=== PATIENT | female | born 1955 | race Hispanic/Latino ===

== ENCOUNTER → 2018-03-31 | Day surgery (SDC) | payer OTHER ==
--- NOTE | 2018-03-28 10:15 | Diagnostic Imaging Report ---
PROCEDURE: X-RAY CHEST, TWO VIEWS COMPARISON: 03/19/2013. INDICATIONS: PREOPERATIVE CHEST XRAY FOR LEFT FOOT SURGERY FINDINGS: Lungs are well-inflated. No focal airspace consolidation, pleural effusion, or pneumothorax. Stable cardiomediastinal contour with mild tortuosity of the thoracic aorta. Normal heart size and pulmonary vasculature. No acute osseous abnormality. Mild multilevel degenerative disc changes of the thoracic spine. CONCLUSION: No acute cardiopulmonary abnormality. Dictated by: Curt Street M.D. on 03/28/2018 at 10:20 Electronically approved by: Curt Street M.D. on 03/28/2018 at 10:20
[2018-03-28 10:20] LABS: BASOPHILS % 0.3 % (0.0-1.0); EOSINOPHILS # (AUTO) 0.1 (0.0-0.4); EOSINOPHILS % 1.6 % (0.0-6.0); HEMATOCRIT 40.3 % (34.2-44.1); HEMOGLOBIN 13.5 g/dL (12.0-16.0); LYMPHOCYTES # (AUTO) 2.1 (1.0-3.2); LYMPHOCYTES % 27.9 % (18.0-39.1); MEAN CORPUSCULAR HEMOGLOBIN 31.1 pg (28-32); MEAN CORPUSCULAR HGB CONC 33.5 g/dL (31-35); MEAN CORPUSCULAR VOLUME 92.9 fL (81-99); MONOCYTES # (AUTO) 0.7 (0.2-0.8); MONOCYTES % 9.7 % (4.4-11.3); NEUTROPHILS # (AUTO) 4.5 (2.1-6.9); PLATELET COUNT 292 x10e3/uL (140-360); RED BLOOD COUNT 4.34 x10e6/uL (3.6-5.1); RED CELL DISTRIBUTION WIDTH 13.1 % (11.7-14.4)
[2018-03-28 10:35] LABS: ANION GAP 14.6 mmol/L (8-16); BLOOD UREA NITROGEN 23 mg/dL (7-26); BUN/CREATININE RATIO 29 (6-25); CALCIUM 9.8 mg/dL (8.4-10.2); CARBON DIOXIDE 28 mmol/L (22-29); CHLORIDE 106 mmol/L (98-107); CREATININE, SERUM 0.79 mg/dL (0.57-1.11); EST GLOMERULAR FILTRATION RATE > 60 ML/MIN (60-); GLUCOSE 100 mg/dL (74-118); POTASSIUM 4.6 mmol/L (3.5-5.1); SODIUM 144 mmol/L (136-145)
[~2018-03-31] MED LIST: ALENDRONATE SOD70 MG PO; ATORVASTATIN CA40 MG PO; ATORVASTATIN PO; BISOPROLOL-HCT1 EAC1 PO; BUPIVACAINE HCL 0.5% INJ 30 ML VIAL INJ ONE; CALCIUM 600 +1 EAC2 PO; CEFAZOLIN SOD 2 GM/D5W 50ML 50 ML IV ONE; DEXAMETHASONE SOD PHOS INJ 4 MG/ML VIAL ONE; EPHEDRINE SULFATE INJ 50 MG/10 ML SYR ONE; FENTANYL CITRATE/PF 100MCG/2 ML INJ ONE; GLYCOPYRROLATE INJ 1MG/ 5 ML SYR ONE; HYDROCODONE/APAP 7.5MG-325MG 1 EA TAB ONE; KETOROLAC TROMETHAMINE 30 MG/ML VIAL ONE; LIDOCAINE HCL 2% LOCAL INJ 5 ML SDV VIAL INJ ONE; MIDAZOLAM HCL 2 MG/2 ML VIAL ONE; NAPROXEN500 MG PO; NEOSTIGMINE 5 MG/5ML SYR ONE; ONDANSETRON HCL INJ 2 MG/ML VIAL ONE; PROPOFOL IV EMULSION 10 MG/ML 20 ML VIAL ONE; ROCURONIUM BROMIDE 10 MG/ML 5ML VIAL ONE; SEVOFLURANE INHAL SOLN 250 ML PEN BTL ONE; VITAMIN B-121000 MCG PO; Z BISOPROLOL HCT PO; Z.0.PRAVASTATIN SOD4 PO; [UNRECOGNIZED DRUG - OTHER] PO
--- NOTE | 2018-04-02 21:56 | Operative Report ---
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 TITLE OF THE OPERATIONS 1. Removal of hardware from the left foot. 2. Triple arthrodesis, left foot including calcaneocuboid fusion, talonavicular fusion, and subtalar joint fusion on the left foot. PROCEDURE IN DETAIL: The patient was taken to the operating room in a mildly sedated state and placed upon the operating room table in supine position. Following induction of general anesthetic, the left lower extremity was elevated to 60 degrees to exsanguinate before inflating the pneumatic thigh tourniquet to 350 mmHg to good hemostasis. Left lower extremity was placed on the operating room table prior to performing the following procedure: Procedure #1. Subtalar joint fusion of the left foot. An Ollier-type incision was made overlying the sinus tarsi and subtalar joints. Incision was deepened via sharp and blunt dissection down to the level of the dorsal capsular structure. Care was taken to identify and retract all vital structures encountered. A hardware previously inserted into the sinus tarsi was removed, this being a sinus tarsi stent or an CHRISTNE implant. The stent was removed fairly easily and this was done under fluoroscopy and then the subtalar joints were debrided, removed of all constricting and surrounding bone in situ. The subtalar joint was then fused with a 7.5 screw. The calcaneocuboid joint was also dissected free as was the talonavicular joint. The calcaneocuboid joint after full debridement and insertion of bone grafting was covered with a claw plate and then attention was directed to the dorsal aspect of the talonavicular joint which after debridement was repositioned and pinned with 2 cortical bone screws 4.0 in diameter. Release of the pneumatic thigh tourniquet showed a normal hyperemic flush to all digits of the left foot. Deep closure was 3-0 Vicryl, subcutaneous closure 4-0 Vicryl, and skin closure 4-0 nylon. All was closed over a TLS drain and the patient was placed in a posterior splint, appropriate mildly compressive dressings were applied. Patient left the operating room with vital signs stable and in apparent satisfactory condition, having tolerated both anesthetic and procedure very well. She will be following up in my office within 1 week postoperatively and understands that she needs to remain completely nonweightbearing in the interim. Job#: [id number]
== END | disposition home or self-care (01) ==
LOC: OR 08:08
PROVIDERS: ATTEND Podiatrist Foot Surgery
DX: M19.072 Primary osteoarthritis, left ankle and foot (principal); M76.822 Posterior tibial tendinitis, left leg; T84.498A Other mechanical complication of other internal orthopedic devices, implants and grafts, initial encounter; I10 Essential (primary) hypertension; E11.9 Type 2 diabetes mellitus without complications; K21.9 Gastro-esophageal reflux disease without esophagitis; B19.20 Unspecified viral hepatitis C without hepatic coma; R06.02 Shortness of breath; Y83.8 Other surgical procedures as the cause of abnormal reaction of the patient, or of later complication, without mention of misadventure at the time of the procedure; Z88.6 Allergy status to analgesic agent; Z01.810 Encounter for preprocedural cardiovascular examination; Z01.812 Encounter for preprocedural laboratory examination; Z01.818 Encounter for other preprocedural examination
CPT/HCPCS: 20680; 28715; 36415 ×2; 71046; 80048; 82948; 85025; 93005; C1713 ×9; J1100; J1885; J2001; J2250; J2405; J3490; 76001